=== PATIENT | female | born 1985 | race Caucasian/White ===

== ENCOUNTER 2016-11-09 14:16 | Emergency (ER) | payer OTHER ==
[~2016-11-09] VITALS: Ht 160 cm; Wt 83.1 kg
[~2016-11-09 14:16] MED LIST: Colace PO; MOTRIN400 MG PO; MOTRIN800 MG PO; Milk Of Magnesia,MOM PO; Senokot,Sennagen PO; TRILAFON2 MG PO; celeXA PO; oxyCODONE PO
[2016-11-09 15:25] LABS: HEMATOCRIT 39.6 % (36.0-46.0); MCH 31.5 PG (29.0-34.0); MCHC 33.6 G/DL (30.0-36.0); MCV 93.8 FL (83-99); MEAN PLAT.VOLUME 8.8 uM^3 (9.5-12.4); PLATELET COUNT 320 K/uL (156-360); RBC DIS.WIDTH-CV 13.8 % (11.8-14.6); RBC DIS.WIDTH-SD 47.3 % (39-53); RED BLOOD COUNT 4.22 M/uL (3.80-5.20)
[2016-11-09 15:33] LABS: CHLORIDE 104 mEq/L (99-109); POTASSIUM 3.6 mEq/L (3.7-5.4); SODIUM 138 mEq/L (136-147)
[2016-11-09 15:35] LABS: GLUCOSE 131 mg/dL (70-99)
[2016-11-09 15:36] LABS: ANION GAP 16 MEQ/L (2-14)
[2016-11-09 15:39] LABS: GFR ESTIMATE (CALCULATED) > 59 mL/min/; UREA NITROGEN (BUN) 6 mg/dL (9-23)
[2016-11-09 15:40] LABS: ADD MIUA? YES; BILIRUBIN NEGATIVE; BLOOD LARGE; COLOR YELLOW ((YELLOW)); GLUCOSE (STRIP) NEGATIVE; KETONES NEGATIVE; LEUKOCYTES SMALL; NITRITE NEGATIVE; PROTEIN (STRIP) 30; SPECIFIC GRAVITY 1.009 (1.000-1.030); UROBILINOGEN 0.2 MG/DL (0.2-1.0)
[2016-11-09 15:48] LABS: BACTERIA RARE /HPF; EPITHELIAL CELLS 4+ /HPF; MUCUS TRACE /LPF; WHITE BLOOD CELLS 30-40 /HPF (0-5)
[2016-11-09] MEDS ORDERED: BACTRIM,SEPT1 TABLET PO (19:06)
[2016-11-09] MEDS ORDERED: BENTYL10 MG PO (19:06)
[2016-11-09] MEDS ORDERED: ZOFRAN ODT4 MG PO (19:06)
[2016-11-09] MEDS ORDERED: PROMETHAZINE HC25 M1 PO (19:17)
[2016-11-09 19:30] VITALS: BP 113/71
== END 2016-11-09 19:30 | disposition home or self-care (01) ==
LOC: EME 14:16
DX: N39.0 Urinary tract infection, site not specified (principal); N93.9 Abnormal uterine and vaginal bleeding, unspecified; F32.9 Major depressive disorder, single episode, unspecified; F41.9 Anxiety disorder, unspecified; F19.10 Other psychoactive substance abuse, uncomplicated; F17.200 Nicotine dependence, unspecified, uncomplicated
CPT/HCPCS: 76856; 80048; 81003; 85027; 99281; 99285; J2405; J7030

== ENCOUNTER 2017-05-26 07:35 | Inpatient (IN) | payer OTHER ==
[~2017-05-26] VITALS: Ht 162.6 cm; Wt 79.3 kg
[~2017-05-26 07:35] MED LIST changes: +BACTRIM,SEPT1 TABLET PO; +BENTYL10 MG PO; +PROMETHAZINE HC25 M1 PO; +ZOFRAN ODT4 MG PO
[2017-05-26] MEDS ORDERED: ATARAX,VISTARIL50 MG PO (09:10)
[2017-05-26] MEDS ORDERED: TEGRETOL200 MG PO (09:10)
[2017-05-26] MEDS ORDERED: WELLBUTRIN XL150 MG PO (09:11)
[2017-05-26] MEDS ORDERED: LITHIUM CARBON600 MG PO (09:12)
[2017-05-26] MEDS ORDERED: INDERAL10 MG PO (09:12)
[2017-05-26] MEDS ORDERED: NEURONTIN300 MG PO (09:13)
[2017-05-26 09:15] VITALS: BP 92/54
[2017-05-26 15:38] VITALS: BP 98/57
[2017-05-27 08:08] VITALS: BP 125/66
[2017-05-27 16:20] VITALS: BP 153/55
[2017-05-28 07:45] VITALS: BP 124/71
[2017-05-28] MEDS ORDERED: PRENATAL VITAM1 EAC6 PO (09:19)
[2017-05-28] MEDS ORDERED: FOLIC ACID1 MG PO (09:19)
== END 2017-05-28 10:36 | disposition home or self-care (01) | DRG 897 ==
LOC: ENRESERV 07:35 → 1WEST 07:35
DX: F11.24 Opioid dependence with opioid-induced mood disorder (principal); O99.321 Drug use complicating pregnancy, first trimester; R45.851 Suicidal ideations; F14.10 Cocaine abuse, uncomplicated; Z3A.00 Weeks of gestation of pregnancy not specified; Z59.0 Homelessness; Z91.5 Personal history of self-harm; F41.9 Anxiety disorder, unspecified; Z56.0 Unemployment, unspecified; F32.89 Other specified depressive episodes; Z91.14 Patient's other noncompliance with medication regimen; Z91.19 Patient's noncompliance with other medical treatment and regimen
CPT/HCPCS: 97165 GO; J0571; J2550; Q0169